=== PATIENT | female | born 1945 ===

== ENCOUNTER 2023-01-16 10:50 | Inpatient (IN) | payer OTHER ==
[~2023-01-16] VITALS: Ht 170.2 cm; Wt 50.8 kg
[2023-01-17] MEDS ORDERED: COZAAR25 MG PO (15:04)
[2023-01-17] MEDS ORDERED: LEVOTHYROXINE25 MCG PO (15:04)
[2023-01-17] MEDS ORDERED: PANTOPRAZOLE SO20 MG PO (15:05)
[2023-01-24 08:02] LABS: HEMATOCRIT 29.9 % (36.0-45.00); HEMOGLOBIN 9.8 g/dL (12.0-15.00); MEAN CELL VOLUME 96.8 fL (80.00-100.00); MEAN CORPUSCULAR HEMOGLOBIN 31.6 pg (27.00-32.0); MEAN CORPUSCULAR HGB CONC 32.7 g/dl (32.0-36.0); RED BLOOD COUNT 3.09 M/uL (4.00-6.00); RED CELL DISTRIBUTION WIDTH 16.8 % (11.5-14.5)
[2023-01-24 08:05] LABS: PLATELET COUNT 122 K/uL (150-450)
[2023-01-24 09:04] LABS: ALBUMIN 2.6 gm/dL (3.4-5.0); CALCIUM 8.2 mg/dL (8.5-10.1); CREATININE SERUM 0.65 mg/dL (0.55-1.02); GFR 87.93; MAGNESIUM 1.9 mg/dL (1.8-2.4); PHOSPHOROUS 3.2 mg/dL (2.5-4.9); POTASSIUM 3.99 mEq/L (3.5-5.1)
[2023-01-26] MEDS ORDERED: ACETAMINOPHEN500 M2 PO (15:11)
== END 2023-01-26 15:41 | disposition home or self-care (01) | DRG 330 ==
LOC: O/R 01-23 06:00 → SURH 01-23 06:00 → SURG 01-23 12:00 → SURH 01-23 15:32 → SURG 01-23 21:00 → SURH 01-26 15:41
PROVIDERS: ADMIT Surgery; ATTEND Surgery
PROC: 07BB4ZZ Excision of Mesenteric Lymphatic, Percutaneous Endoscopic Approach (ICD-10-PCS; 2023-01-23)
PROC: 0DTF4ZZ Resection of Right Large Intestine, Percutaneous Endoscopic Approach (ICD-10-PCS; principal; 2023-01-23 21:00)
DX: C18.2 Malignant neoplasm of ascending colon (principal); K92.1 Melena; R59.0 Localized enlarged lymph nodes; E03.9 Hypothyroidism, unspecified; Z20.822 Contact with and (suspected) exposure to COVID-19